=== PATIENT | female | born 2000 | race African-American/Black ===

== ENCOUNTER 2022-02-23 18:01 | Emergency (ER) | payer MEDICAID ==
[~2022-02-23] VITALS: Ht 185.4 cm; Wt 95.0 kg
[2022-02-23 18:06] VITALS: BP 143/93
[2022-02-23] MEDS ORDERED: IBUPROFEN 600MG TABLET PO STA (18:20)
[2022-02-23 21:47] LABS: BASOPHILS % 0.7 % (0.0-2.0); EOSINOPHILS % 1.3 % (0.0-5.0); HEMATOCRIT. 33.7 % (36.0-48.0); HEMOGLOBIN. 10.9 g/dL (12.0-16.0); LYMPHOCYTES % 27.5 % (20.0-50.0); MEAN CORPUSCULAR HEMOGLOBIN 25.2 pg (28.0-32.0); MEAN CORPUSCULAR VOLUME 77.9 fL (81.0-99.0); MEAN PLATELET VOLUME 7.3 fl (7.4-10.4); MONOCYTES % 10.2 % (2.0-8.0); NEUTROPHILS % 60.3 % (40.0-76.0); PLATELET 426 x1000/uL (130-400); RED BLOOD CELL COUNT 4.32 mill/uL (4.2-5.4); RED CELL DISTRIBUTION WIDTH 15.3 % (11.6-14.6)
[2022-02-23 21:53] LABS: CHLORIDE 109 mEq/L (98-107)
[2022-02-24] MEDS ORDERED: KETOROLAC 30MG/ML VIAL IM ONE (01:00)
[2022-02-24] MEDS ORDERED: IBUP-2030 MT (01:57)
== END 2022-02-24 02:13 | disposition home or self-care (01) ==
LOC: ER 18:01
DX: R07.89 Other chest pain (principal); R06.02 Shortness of breath
CPT/HCPCS: 36415; 71045; 71046; 80053; 85025; 93005; 96372; 99285; J1885

== ENCOUNTER 2022-04-06 15:58 | Emergency (ER) | payer MEDICAID ==
[~2022-04-06] VITALS: Ht 185.4 cm; Wt 91.0 kg
[~2022-04-06 15:58] MED LIST: IBUP-2030 MT
[2022-04-06] MEDS ORDERED: KETOROLAC 15MG/ML VIAL IM ONE (18:00)
[2022-04-06 22:44] VITALS: BP 122/75
[2022-04-07] MEDS ORDERED: CEPH500C2 MT (22:06)
== END 2022-04-06 22:44 | disposition home or self-care (01) ==
LOC: ER 15:58
DX: N64.4 Mastodynia (principal); R03.0 Elevated blood-pressure reading, without diagnosis of hypertension
CPT/HCPCS: 36415; 76642; 81025; 84702; 96372; 99284; J1885

== ENCOUNTER 2022-04-07 17:41 | Emergency (ER) | payer MEDICAID ==
[~2022-04-07] VITALS: Ht 185.4 cm; Wt 100.0 kg
[2022-04-07 18:00] VITALS: BP 137/94
[2022-04-07 20:49] LABS: BASOPHILS % 0.5 % (0.0-2.0); EOSINOPHILS % 0.7 % (0.0-5.0); LYMPHOCYTES % 28.8 % (20.0-50.0); MEAN CORPUSCULAR HEMOGLOBIN 24.6 pg (28.0-32.0); MEAN CORPUSCULAR VOLUME 80.4 fL (81.0-99.0); MEAN PLATELET VOLUME 7.3 fl (7.4-10.4); MONOCYTES % 10.4 % (2.0-8.0); NEUTROPHILS % 59.6 % (40.0-76.0); PLATELET 394 x1000/uL (130-400); RED BLOOD CELL COUNT 4.48 mill/uL (4.2-5.4); RED CELL DISTRIBUTION WIDTH 15.2 % (11.6-14.6)
[2022-04-07 20:50] LABS: CHLORIDE 106 mEq/L (98-107)
[2022-04-07 21:09] LABS: CLARITY URINE CLOUDY (CLEAR); COLOR URINE YELLOW (YELLOW); KETONES URINE NEGATIVE (NEGATIVE); LEUKOCYTE ESTERASE URINE 3+ (NEGATIVE); NITRITE URINE NEGATIVE (NEGATIVE); OCCULT BLOOD URINE NEGATIVE (NEGATIVE); PH URINE 5.5 (4.5-8.0); PROTEIN URINE TRACE (NEGATIVE); SPECIFIC GRAVITY URINE 1.023 (1.005-1.030)
[2022-04-07] MEDS ORDERED: CEPH500C2 MT (22:06)
[2022-04-10 09:08] LABS: NEISSERIA GONORRHOEAE NAA Negative (Negative)
== END 2022-04-07 22:24 | disposition home or self-care (01) ==
LOC: ER 17:41
DX: R42 Dizziness and giddiness (principal)
CPT/HCPCS: 36415; 80048; 81003; 82962; 85025; 87491; 87591; 93005; 99284

== ENCOUNTER 2022-07-22 10:03 | Emergency (ER) | payer MEDICAID, OTHER ==
[~2022-07-22] VITALS: Ht 185.4 cm; Wt 100.0 kg
[~2022-07-22 10:03] MED LIST changes: +CEPH500C2 MT
[2022-07-22 10:10] VITALS: BP 134/89
== END 2022-07-22 11:22 | disposition home or self-care (01) ==
LOC: ER 10:03
DX: B34.9 Viral infection, unspecified (principal); Z20.822 Contact with and (suspected) exposure to COVID-19
CPT/HCPCS: 87426; 99283; C9803

== ENCOUNTER 2023-05-17 15:31 | Emergency (ER) | payer MEDICAID, OTHER ==
[~2023-05-17] VITALS: Ht 185.4 cm; Wt 106.4 kg
[2023-05-17 15:59] VITALS: O2SAT 100
[2023-05-17 18:20] LABS: BASOPHILS % 0.5 % (0.0-2.0); DIFFERENTIAL COMMENT 0; EOSINOPHILS % 0.8 % (0.0-5.0); HEMATOCRIT. 34.4 % (36.0-48.0); HEMOGLOBIN. 10.7 g/dL (12.0-16.0); LYMPHOCYTES % 25.1 % (20.0-50.0); MEAN CORPUSCULAR HEMOGLOBIN 24.7 pg (28.0-32.0); MEAN CORPUSCULAR VOLUME 79.8 fL (81.0-99.0); MEAN PLATELET VOLUME 7.5 fl (7.4-10.4); MONOCYTES % 9.8 % (2.0-8.0); NEUTROPHILS % 63.8 % (40.0-76.0); PLATELET 440 x1000/uL (130-400); RED BLOOD CELL COUNT 4.31 mill/uL (4.2-5.4); RED CELL DISTRIBUTION WIDTH 14.9 % (11.6-14.6); WHITE BLOOD COUNT 13.8 x1000/uL (4.5-11.0)
[2023-05-17 18:32] LABS: CHLORIDE 107 mEq/L (98-107); INDEX HEMOLYSI 4 (1-3); INDEX ICTERIC 1 (1-4); INDEX LIPEMIC 1 (1-3); POTASSIUM 4.6 mEq/L (3.5-5.1); SODIUM 131 mEq/L (136-145)
[2023-05-17 18:40] LABS: ALANINE AMINOTRANSFERASE 19 IU/L (13-61); ALBUMIN 3.9 g/dL (3.4-5.0); ASPARTATE AMINOTRANSFERASE 41 IU/L (15-37); BILIRUBIN TOTAL 0.6 mg/dL (0.1-1.0); CARBON DIOXIDE 22 mEq/L (21-32); CREATININE 0.7 mg/dL (0.6-1.3); GLUCOSE 89 mg/dL (70-105); PROTEIN TOTAL 9.2 g/dL (6.0-8.3); UREA NITROGEN BLOOD 6 mg/dL (7-21)
[2023-05-17 18:45] LABS: CLARITY URINE CLOUDY (CLEAR); COLOR URINE YELLOW (YELLOW); GLUCOSE URINE NEGATIVE (NEGATIVE); KETONES URINE TRACE (NEGATIVE); LEUKOCYTE ESTERASE URINE 3+ (NEGATIVE); NITRITE URINE NEGATIVE (NEGATIVE); OCCULT BLOOD URINE NEGATIVE (NEGATIVE); PH URINE 6.5 (4.5-8.0); PROTEIN URINE TRACE (NEGATIVE); SPECIFIC GRAVITY URINE 1.023 (1.005-1.030)
[2023-05-17 19:31] LABS: BACTERIA URINE 3+; RBC URINE 0-2 /hpf (0-2); SQUAMOUS EPITHELIAL CELL URINE 3+ /lpf (RARE/1+)
[2023-05-17] MEDS ORDERED: CEPH500C2 MT (22:17)
[2023-05-17 22:44] VITALS: BP 128/68; PULSE 87; RESP 18; TEMP 98.5
== END 2023-05-17 22:45 | disposition home or self-care (01) ==
LOC: ER 15:31
DX: O23.41 Unspecified infection of urinary tract in pregnancy, first trimester (principal); N39.0 Urinary tract infection, site not specified; Z3A.01 Less than 8 weeks gestation of pregnancy
CPT/HCPCS: 36415; 76801; 80053; 81003; 81025; 84702; 85025; 99284

== ENCOUNTER 2024-01-25 20:49 | Emergency (ER) | payer OTHER ==
[~2024-01-25] VITALS: Ht 185.4 cm; Wt 100.0 kg
[2024-01-25 21:28] VITALS: O2SAT 100
[2024-01-25] MEDS: ACETAMINOPHEN 325MG TABLET PO ONE (23:40)
[2024-01-25 23:57] VITALS: BP 145/99; PULSE 81; RESP 18; TEMP 98.8
== END 2024-01-25 23:58 | disposition home or self-care (01) ==
LOC: ER 20:49
DX: I10 Essential (primary) hypertension (principal); R51.9 Headache, unspecified
CPT/HCPCS: 99282

== ENCOUNTER 2024-07-13 15:38 | Emergency (ER) | payer OTHER ==
[~2024-07-13] VITALS: Ht 167.6 cm; Wt 63.0 kg
[2024-07-13 15:49] VITALS: O2SAT 100
[2024-07-13 17:40] LABS: BASOPHILS % 0.4 % (0.0-2.0); DIFFERENTIAL COMMENT 0; EOSINOPHILS % 0.9 % (0.0-5.0); HEMATOCRIT. 31.9 % (36.0-48.0); HEMOGLOBIN. 10.3 g/dL (12.0-16.0); LYMPHOCYTES % 25.6 % (20.0-50.0); MEAN CORPUSCULAR HEMOGLOBIN 25.5 pg (28.0-32.0); MEAN CORPUSCULAR HGB CONC 32.3 g/dL (31.0-37.0); MEAN CORPUSCULAR VOLUME 78.9 fL (81.0-99.0); MEAN PLATELET VOLUME 7.5 fl (7.4-10.4); MONOCYTES % 9.7 % (2.0-8.0); NEUTROPHILS % 63.4 % (40.0-76.0); PLATELET 428 x1000/uL (130-400); RED BLOOD CELL COUNT 4.04 mill/uL (4.2-5.4); RED CELL DISTRIBUTION WIDTH 14.9 % (11.6-14.6); WHITE BLOOD COUNT 9.5 x1000/uL (4.5-11.0)
[2024-07-13 17:46] LABS: CHLORIDE 106 mEq/L (98-107); POTASSIUM 3.6 mEq/L (3.5-5.1); SODIUM 139 mEq/L (136-145)
[2024-07-13 17:47] LABS: CALCIUM 9.8 mg/dL (8.7-10.4); CARBON DIOXIDE 27 mEq/L (21-32)
[2024-07-13 17:50] LABS: HCG SCREEN NEGATIVE
[2024-07-13 17:52] LABS: CREATININE 0.9 mg/dL (0.6-1.0); GLUCOSE 70 mg/dL (70-105); UREA NITROGEN BLOOD 13 mg/dL (9-23)
[2024-07-13 17:53] LABS: TROPONIN I HIGH SENSITIVITY < 4 ng/L (3.0-34)
[2024-07-13 17:55] LABS: D-DIMER 0.62 mg/L FEU (<0.50); PROTHROMBIN TIME 10.7 sec (9.6-11.0)
[2024-07-13 17:58] VITALS: BP 139/74; PULSE 86; RESP 16; TEMP 98.2
[2024-07-13] MEDS: ACETAMINOPHEN 325MG TABLET PO STA (17:58)
[2024-07-13] MEDS: IBUPROFEN 600MG TABLET PO STA (17:58)
[2024-07-13] MEDS: ONDANSETRON 4MG ODT PO ONE (17:58)
[2024-07-13] MEDS: MAGNESIUM/ALUMINUM HYDROXIDE/SIMETHICONE 30ML UDC PO ONE (17:58)
[2024-07-13] MEDS: FAMOTIDINE 20MG TABLET PO ONE (17:58)
[2024-07-13 18:15] LABS: CLARITY URINE CLOUDY (CLEAR); COLOR URINE YELLOW (YELLOW); GLUCOSE URINE NEGATIVE (NEGATIVE); KETONES URINE NEGATIVE (NEGATIVE); LEUKOCYTE ESTERASE URINE 3+ (NEGATIVE); NITRITE URINE NEGATIVE (NEGATIVE); OCCULT BLOOD URINE NEGATIVE (NEGATIVE); PROTEIN URINE TRACE (NEGATIVE); SPECIFIC GRAVITY URINE 1.025 (1.005-1.030)
[2024-07-13 18:32] LABS: BACTERIA URINE TRACE; RBC URINE 0-2 /hpf (0-2); SQUAMOUS EPITHELIAL CELL URINE 1+ /lpf (RARE/1+)
[2024-07-13 19:33] LABS: TROPONIN I HIGH SENSITIVITY < 4 ng/L (3.0-34)
[2024-07-13] MEDS ORDERED: IOHEXOL-350 100 ML BOTTLE ONE (23:40)
== END 2024-07-13 20:06 | disposition home or self-care (01) ==
LOC: ER 15:38
DX: R09.1 Pleurisy (principal); R07.89 Other chest pain; Z88.0 Allergy status to penicillin
CPT/HCPCS: 80048; 81003; 81025; 84703; 85025; 85379; 85610; 84484; 36415; 71045; 71275; 93005; 99285; Q9967; Q0162; Z7610

== ENCOUNTER 2024-12-16 09:09 | Emergency (ER) | payer OTHER ==
[~2024-12-16] VITALS: Ht 185.4 cm; Wt 113.3 kg
[2024-12-16 09:15] VITALS: O2SAT 98
[2024-12-16 10:06] LABS: CHLORIDE 102 mEq/L (98-107); POTASSIUM 3.8 mEq/L (3.5-5.1); SODIUM 137 mEq/L (136-145)
[2024-12-16 10:07] LABS: CALCIUM 9.6 mg/dL (8.7-10.4); CARBON DIOXIDE 26 mEq/L (21-32)
[2024-12-16 10:11] LABS: BASOPHILS % 0.9 % (0.0-2.0); DIFFERENTIAL COMMENT 0; EOSINOPHILS % 0.8 % (0.0-5.0); HEMATOCRIT. 34.1 % (36.0-48.0); HEMOGLOBIN. 10.1 g/dL (12.0-16.0); LYMPHOCYTES % 23.6 % (20.0-50.0); MEAN CORPUSCULAR HEMOGLOBIN 22.4 pg (28.0-32.0); MEAN CORPUSCULAR HGB CONC 29.7 g/dL (31.0-37.0); MEAN CORPUSCULAR VOLUME 75.4 fL (81.0-99.0); MEAN PLATELET VOLUME 7.7 fl (7.4-10.4); MONOCYTES % 10.3 % (2.0-8.0); NEUTROPHILS % 64.4 % (40.0-76.0); PLATELET 463 x1000/uL (130-400); RED BLOOD CELL COUNT 4.52 mill/uL (4.2-5.4); RED CELL DISTRIBUTION WIDTH 15.3 % (11.6-14.6); WHITE BLOOD COUNT 7.5 x1000/uL (4.5-11.0)
[2024-12-16 10:12] LABS: CREATININE 0.7 mg/dL (0.6-1.0); GLUCOSE 97 mg/dL (70-105); UREA NITROGEN BLOOD 9 mg/dL (9-23)
[2024-12-16 10:13] LABS: PROTHROMBIN TIME 10.9 sec (9.6-11.0)
[2024-12-16] MEDS: ACETAMINOPHEN 325MG TABLET PO STA (10:15)
[2024-12-16] MEDS: IBUPROFEN 600MG TABLET PO STA (10:15)
[2024-12-16] MEDS: ONDANSETRON 4MG ODT PO STA (10:15)
[2024-12-16 10:18] LABS: CLARITY URINE CLEAR (CLEAR); COLOR URINE YELLOW (YELLOW); GLUCOSE URINE NEGATIVE (NEGATIVE); KETONES URINE NEGATIVE (NEGATIVE); LEUKOCYTE ESTERASE URINE 3+ (NEGATIVE); NITRITE URINE NEGATIVE (NEGATIVE); OCCULT BLOOD URINE NEGATIVE (NEGATIVE); PROTEIN URINE NEGATIVE (NEGATIVE); SPECIFIC GRAVITY URINE 1.024 (1.005-1.030)
[2024-12-16 10:20] LABS: HCG SCREEN NEGATIVE
[2024-12-16] MEDS ORDERED: SULF1TAB48 MT (10:47)
[2024-12-16] MEDS ORDERED: IBUP-2030 MT (10:48)
[2024-12-16] MEDS: SULFAMETHOXAZOLE/TRIMETHOPRIM 800/160MG TABLET PO ONE (10:58)
[2024-12-16 11:04] VITALS: BP 119/89; PULSE 83; RESP 18; TEMP 36.8; O2SAT 98
[2024-12-16 11:24] LABS: MUCUS URINE 1+ /lpf (< = 2+); SQUAMOUS EPITHELIAL CELL URINE 3+ /lpf (RARE/1+)
[2024-12-16 11:25] LABS: BACTERIA URINE 1+; RBC URINE NONE SEEN /hpf (0-2)
== END 2024-12-16 11:05 | disposition home or self-care (01) ==
LOC: ER 09:09
DX: N39.0 Urinary tract infection, site not specified (principal); I10 Essential (primary) hypertension; Z79.899 Other long term (current) drug therapy; Z88.0 Allergy status to penicillin
CPT/HCPCS: 99284; 80048; 81003; 84703; 85025; 85610; 36415; Q0162

== ENCOUNTER 2024-12-30 15:29 | Emergency (ER) | payer OTHER ==
[~2024-12-30] VITALS: Ht 182.9 cm; Wt 87.0 kg
[~2024-12-30 15:29] MED LIST changes: +SULF1TAB48 MT
[2024-12-30 16:22] VITALS: O2SAT 100
[2024-12-30] MEDS: ONDANSETRON 4MG ODT PO ONE (16:26)
[2024-12-30 17:04] LABS: CHLORIDE 104 mEq/L (98-107); POTASSIUM 3.8 mEq/L (3.5-5.1); SODIUM 138 mEq/L (136-145)
[2024-12-30 17:05] LABS: BASOPHILS % 0.4 % (0.0-2.0); CARBON DIOXIDE 25 mEq/L (21-32); DIFFERENTIAL COMMENT 0; EOSINOPHILS % 0.6 % (0.0-5.0); HEMATOCRIT. 31.3 % (36.0-48.0); HEMOGLOBIN. 9.4 g/dL (12.0-16.0); LYMPHOCYTES % 22.9 % (20.0-50.0); MEAN CORPUSCULAR HEMOGLOBIN 23.1 pg (28.0-32.0); MEAN CORPUSCULAR HGB CONC 30.2 g/dL (31.0-37.0); MEAN CORPUSCULAR VOLUME 76.6 fL (81.0-99.0); MEAN PLATELET VOLUME 7.6 fl (7.4-10.4); MONOCYTES % 8.6 % (2.0-8.0); NEUTROPHILS % 67.5 % (40.0-76.0); PLATELET 428 x1000/uL (130-400); RED BLOOD CELL COUNT 4.08 mill/uL (4.2-5.4); RED CELL DISTRIBUTION WIDTH 15.8 % (11.6-14.6); WHITE BLOOD COUNT 11.8 x1000/uL (4.5-11.0)
[2024-12-30 17:06] LABS: CALCIUM 8.9 mg/dL (8.7-10.4)
[2024-12-30 17:10] LABS: HCG SCREEN NEGATIVE
[2024-12-30 17:11] LABS: CREATININE 0.7 mg/dL (0.6-1.0); GLUCOSE 98 mg/dL (70-105); UREA NITROGEN BLOOD 9 mg/dL (9-23)
[2024-12-30 17:19] LABS: CLARITY URINE CLOUDY (CLEAR); COLOR URINE YELLOW (YELLOW); GLUCOSE URINE NEGATIVE (NEGATIVE); KETONES URINE NEGATIVE (NEGATIVE); LEUKOCYTE ESTERASE URINE 3+ (NEGATIVE); NITRITE URINE NEGATIVE (NEGATIVE); OCCULT BLOOD URINE NEGATIVE (NEGATIVE); PROTEIN URINE NEGATIVE (NEGATIVE); SPECIFIC GRAVITY URINE 1.014 (1.005-1.030); UROBILINOGEN URINE 0.2 E.U./dL (0.2-1.0)
[2024-12-30 17:39] LABS: BACTERIA URINE 3+
[2024-12-30 17:40] LABS: RBC URINE 0-2 /hpf (0-2); SQUAMOUS EPITHELIAL CELL URINE 2+ /lpf (RARE/1+)
[2024-12-30] MEDS ORDERED: CEFP200T13 MT (18:12)
[2024-12-30] MEDS ORDERED: ONDA-239 PO (18:13)
[2024-12-30 19:31] VITALS: BP 142/91; PULSE 76; RESP 15; TEMP 36.8
== END 2024-12-30 19:32 | disposition home or self-care (01) ==
LOC: ER 15:29
DX: N12 Tubulo-interstitial nephritis, not specified as acute or chronic (principal); R03.0 Elevated blood-pressure reading, without diagnosis of hypertension; Z88.0 Allergy status to penicillin
CPT/HCPCS: 99284; 74176; 80048; 81003; 82962; 84703; 85025; 87086; 36415; Q0162